=== PATIENT | male | born 1985 | race Caucasian/White ===

== ENCOUNTER 2023-12-22 11:03 | Emergency (ER) | payer OTHER ==
--- NOTE | 2023-12-22 11:59 | ED ---
URI HPI - General Chief Complaint: Fever Stated Complaint: Fever,Body aches Time Seen by Provider: 12/22/23 11:21 Source: patient, RN notes reviewed Mode of arrival: ambulatory Limitations: no limitations - History of Present Illness Initial Comments: This is a 38-year-old male who presents to the emergency department for coughing, congestion, fevers, and bodyaches. States that it started 5 days ago. He had a sore throat when symptoms first started, however that has since improved. Reports some shortness of breath. Describes the cough as productive with green sputum. States that he was checking his oxygen at home and it got to 93%, which concerned him, prompting him to come to the emergency department for evaluation. MD Complaint: cough, sore throat, nasal congestion - Related Data Previous Rx's Medication Instructions Recorded Albuterol Sulfate [Albuterol 1 - 2 puff PO Q4-6H PRN #8.5 gm 12/22/23 Sulfate Hfa] Guaifenesin/Dextromethorphan 10 ml PO Q4-6H PRN #240 ml 12/22/23 [Guaifenesn-Dm 100-10Mg/5Ml Cup] Allergies Allergy/AdvReac Type Severity Reaction Status Date / Time No Known Allergies Allergy Verified 12/22/23 11:19 Review of Systems ROS Statement: Those systems with pertinent positive or pertinent negative responses have been documented in the HPI. ROS Other: All systems not noted in ROS Statement are negative. Past Medical History Past Medical History: Hyperlipidemia History of Any Multi-Drug Resistant Organisms: None Reported Additional Past Surgical History / Comment(s): ACL repair Past Psychological History: No Psychological Hx Reported Smoking Status: Never smoker Past Alcohol Use History: None Reported Past Drug Use History: None Reported General Exam Limitations: no limitations General appearance: alert, in no apparent distress Head exam: Present: atraumatic, normocephalic, normal inspection ENT exam: Present: other (Posterior pharyngeal erythema with mild tonsillar hypertrophy) Respiratory exam: Present: normal lung sounds bilaterally. Absent: respiratory distress, wheezes, rales, rhonchi, stridor Cardiovascular Exam: Present: regular rate, normal rhythm, normal heart sounds. Absent: systolic murmur, diastolic murmur, rubs, gallop, clicks Neurological exam: Present: alert, oriented X3, CN II-XII intact Psychiatric exam: Present: normal affect, normal mood Skin exam: Present: warm, dry, intact, normal color. Absent: rash Course Vital Signs 12/22/23 12/22/23 11:14 13:18 Temperature 99.4 F 98.4 F Pulse Rate 108 H 89 Respiratory 20 18 Rate Blood Pressure 125/71 120/71 O2 Sat by Pulse 95 97 Oximetry Medical Decision Making - Medical Decision Making This is a 38-year-old male who presents to the emergency department for coughing and congestion. Was pt. sent in by a medical professional or institution? @ -No Did you speak to anyone other than the patient for history? @ -No Did you review nursing and triage notes? @ -Yes, and I agree, it is accurate with regards to the patient's symptoms. Were old charts reviewed? @ -No Differential Diagnosis? @ -Differential Cough: Influenza, Covid, RSV, croup, allergic rhinitis, GERD, pneumonia, bronchitis, COPD, viral pharyngitis, streptococcal pharyngitis, this is not meant to be an all-inclusive list. EKG interpreted by me (3pts min.)? @ -Not obtained X-rays interpreted by me (1pt min.)? @ -Chest x-ray obtained, my interpretation identifies no localized consolidations or infiltrates. CT interpreted by me (1pt min.)? @ -Not obtained U/S interpreted by me (1pt. min.)? @ -Not obtained What testing was considered but not performed? (CT, X-rays, U/S, labs)? Why? @ -None What meds were considered but not given? Why? @ -None Did you discuss the management of the patient with other professionals? @ -No Did you reconcile home meds? @ -No Was smoking cessation discussed for >3mins.? @ -No Was critical care preformed (if so, how long)? @ -No Were there social determinants of health that impacted care today? How? (Homelessness, low income, unemployed, alcoholism, drug addiction, transportatio n, low edu. Level, literacy, decrease access to med. care, care home, rehab)? @ -No Was there de-escalation of care discussed even if they declined? (Discuss DNR or withdrawal of care, Hospice)? @ -No What co-morbidities impacted this encounter? (DM, HTN, Smoking, COPD, CAD, Cancer, CVA, Hep., AIDS, mental health diagnosis, sleep apnea, morbid obesity)? @ -None Was patient admitted / discharged? @ -Discharged. COVID, influenza, and RSV testing negative. Rapid strep test is negative. Chest x-ray reveals no acute process. Patient declined the need for any medication in the emergency department. Symptoms are likely viral in nature. Prescription for albuterol inhaler and guaifenesin DM cough syrup provi ded for symptomatic management. Otherwise advised follow-up with his PCP. Patient discharged home in stable condition. Case discussed with ED attending Dr. Herring. Return precautions reviewed in depth, the patient is instructed to return to the emergency department with any new, worsening, or concerning symptoms. Patient verbalized understanding. Undiagnosed new problem with uncertain prognosis? @ -None Drug Therapy requiring intensive monitoring for toxicity (Heparin, Nitro, Insulin, Cardizem)? @ -None Were any procedures done? @ -None Diagnosis/symptom? @ -Viral URI Acute, or Chronic, or Acute on Chronic? @ -Acute Uncomplicated (without systemic symptoms) or Complicated (systemic symptoms)? @ -Uncomplicated Side effects of treatment? @ -None Exacerbation, Progression, or Severe Exacerbation] @ -Not applicable Poses a threat to life or bodily function? @ -No - Lab Data Lab Results 12/22/23 12/22/23 Range/Units 11:24 11:24 Influenza Type A (PCR) Not Detected (Not Detectd) Influenza Type B (PCR) Not Detected (Not Detectd) RSV (PCR) Not Detected (Not Detectd) SARS-CoV-2 (PCR) Not Detected (Not Detectd) Group A Strep (PCR) NOT DETECTED (Not Detectd) - Radiology Data Radiology results: report reviewed, image reviewed Disposition Clinical Impression: URI (upper respiratory infection) Disposition: HOME SELF-CARE Instructions (If sedation given, give patient instructions): Upper Respiratory Infection (ED) Additional Instructions: Return to the emergency department with any new, worsening, or concerning symptoms. Alternate with ibuprofen and Tylenol as needed for fevers and bodyaches. You can take the guanfacine DM cough syrup every 4-6 hours to help with coughing and chest congestion. Use the albuterol inhaler every 4-6 hours to help with shortness of breath. Make sure you get plenty of rest and drink plenty of fluids. Follow up with your primary care provider in 1-2 days. Prescriptions: Albuterol Sulfate [Albuterol Sulfate Hfa] 1 - 2 puff PO Q4-6H PRN #8.5 gm PRN Reason: Shortness Of Breath Guaifenesin/Dextromethorphan [Guaifenesn-Dm 100-10Mg/5Ml Cup] 10 ml PO Q4-6H PRN #240 ml PRN Reason: Cough Is patient prescribed a controlled substance at d/c from ED?: No Referrals: Román Flores MD [Primary Care Provider] - 1-2 days Time of Disposition: 12:57
--- NOTE | 2023-12-22 12:07 | XR ---
EXAMINATION TYPE: XR chest 2V DATE OF EXAM: 12/22/2023 COMPARISON: 06/12/2022 HISTORY: 38-year-old male cough and fever TECHNIQUE: PA and lateral views FINDINGS: The cardiomediastinal silhouette, aorta, and pulmonary vasculature are within normal limits. Some str yue atelectasis in the lower lungs. Otherwise, lungs and pleural spaces are clear. IMPRESSION: No definite acute process at this time. [facility], , 12/22/2023 12:05 PM
[2023-12-22 13:20] VITALS: BP 120/71; PULSE 89; RESP 18; TEMP 98.4
== END 2023-12-22 13:20 | disposition home or self-care (01) ==
LOC: EC 11:03
DX: J06.9 Acute upper respiratory infection, unspecified (principal)
CPT/HCPCS: 71046; 87636; 87651; 99283